=== PATIENT | male | born 1955 | race Caucasian/White ===

== ENCOUNTER → 2017-06-03 | Outpatient (CLI) | payer BC ==
[~2017-06-03] MED LIST: ASPEC81 PO; CITA20TA9 PO; CRG125 PO; ENAL10TA PO; EPP3/2 IM; LPT/40 PO; PANT40TA PO; PRAS1TAB6 PO
[2017-06-03 12:31] LABS: BASO % 0.5 %; BASO ABS # 0.04 K/uL (0-0.2); COMPLETE YES; HEMATOCRIT 44.1 % (42-52); IG% 0.3 %; LYMPH % 34.2 %; LYMPH ABS # 2.99 K/uL (1.2-3.4); MEAN CELL VOLUME 94.8 fL (80-100); MEAN CORPUSCULAR HGB CONC 33.8 g/dl (32-36); MEAN PLATELET VOLUME 10.5 fL (7.4-10.4); MONO % 7.9 %; NEUT % 54.1 %; PLATELET COUNT 328 K/uL (130-400); RED BLOOD COUNT 4.65 M/uL (4.7-6.1); WHITE BLOOD COUNT 8.74 K/uL (4.8-10.8)
[2017-06-03 12:41] LABS: ESTIMATED AVERAGE GLUCOSE 123 mg/dl; HA1C FLAG Normal (Normal)
[2017-06-03 12:42] LABS: ALT/SGPT 36 U/L (12-78); BLOOD UREA NITROGEN 13 mg/dl (7-18); BUN/CREATININE RATIO 11.4 (10-20); CALCIUM 8.7 mg/dl (8.5-10.1); CARBON DIOXIDE 26 mmol/L (21-32); CHLORIDE 107 mmol/L (98-107); CHOLESTEROL 144 mg/dl (0-200); GLUCOSE 94 mg/dl (70-99); POTASSIUM 4.2 mmol/L (3.5-5.1); SODIUM 140 mmol/L (136-145)
[2017-06-03 12:47] LABS: ALB/GLOB RATIO 0.9 (0.9-2); ALKALINE PHOSPHATASE 110 U/L (45-117); AST/SGOT 20 U/L (15-37); CHOLESTEROL/HDL RATIO 3.9; HDL CHOLESTEROL 37 mg/dl; LDL CHOLESTEROL CALCULATED 79 mg/dl; TRIGLYCERIDES 140 mg/dl (0-150); VERY LOW DENSITY LIPOPROT CALC 28 mg/dl
== END | disposition home or self-care (01) ==
LOC: C.LABBFT 10:09
PROVIDERS: ATTEND Physician Assistant Medical
DX: R73.01 Impaired fasting glucose (principal); Z12.5 Encounter for screening for malignant neoplasm of prostate

== ENCOUNTER → 2017-08-27 | Outpatient (CLI) | payer BC ==
[~2017-08-27] MED LIST changes: +ASPCH81X PO; -ASPEC81 PO; +ATOR-26 PO; -CITA20TA9 PO; +HYDR-5688 PO; -LPT/40 PO; +PARO1TAB27 PO; +TAMS0.4C38 PO
--- NOTE | 2017-08-27 15:52 | DIAGNOSTIC IMAGING REPORT ---
KUB CLINICAL HISTORY: Evaluate for right ureteral calculus. COMPARISON STUDY: CT of the abdomen and pelvis August 17, 2017. FINDINGS: The 6 mm distal right ureteral calculus is unchanged in position since CT of August 17, 2017. Multiple bilateral renal calculi are noted, including an 8 mm left renal calculus. No additional ureteral calculi are identified. IMPRESSION: 1. No change in position of a 6 mm distal right ureteral calculus since CT of August 17, 2017. 2. Bilateral nephrolithiasis. Electronically signed by: Jose Nelson M.D. 08/27/2017 3:50 PM Dictated Date/Time: 08/27/2017 3:48 PM
== END | disposition home or self-care (01) ==
LOC: C.RAD1850 15:26
PROVIDERS: ATTEND Nurse Practitioner
DX: N20.1 Calculus of ureter (principal)

== ENCOUNTER → 2017-10-03 | Day surgery (SDC) | payer BC ==
[2017-09-23 15:23] VITALS: Ht 177.8 cm; Wt 100.0 kg
[~2017-10-03] VITALS: Ht 177.8 cm; Wt 100.0 kg
[~2017-10-03] MED LIST changes: +CARV12.52 PO; +ENAL1TAB31 PO; +GUAISYP4 PO; -HYDR-5688 PO; +NTRGSL/4 UT; +PROPOFOL IV EMULSION 10 MG/ML 20 ML VIAL IV ONE; +SODIUM CHLORIDE 0.9% 500ML 500 ML IV ONE
--- NOTE | 2017-10-03 11:11 | Endo History and Physical ---
History & Physical Date of Service: Oct 03, 2017. Chief Complaint: history of polyps Referring Physician: Willow BOOGIE History of Present Illness 62 yo CM who presents for colonoscopy secondary to history of colon polyps. Past Surgical History Hx Cardiac Surgery: Yes (HEART CATH-2 STENTS PLACED) Hx Internal Defibrillator: No Hx Pacemaker: No Hx Abdominal Surgery: No Hx of Implantable Prosthesis: No Hx Post-Op Nausea and Vomiting: No Hx Cancer Surgery: No Hx Thoracic Surgery: No Hx Orthopedic: Yes (RT KNEE ARTHROSCOPY) Hx Urinary Tract Surgery: Yes (LITHOTRIPSY'S, URETEROSCOPY WITH KIDNEY STONE REMOVAL) Family History None Social History Smoking Status: Never Smoker Hx Substance Use: No Hx Alcohol Use: Yes (RARELY) Allergies Coded Allergies: Erythromycin (Verified Allergy, Intermediate, HIVES, 09/23/17) Current Medications Reported Home Medications Medications Dose Route/Sig Max Daily Dose Days Date Category Flomax (Tamsulosin Hcl) 0.4 Mg Cap 0.4 Mg PO QAM 09/23/17 Reported Nitrostat (Nitroglycerin) 0.4 Mg Tab 0.4 Mg UT PRN PRN 09/23/17 Reported Vasotec (Enalapril Maleate) 20 Mg Tab 1 Tab PO QAM 09/23/17 Reported Paxil (Paroxetine HCl) 20 Mg Tab 20 Mg PO QAM 08/17/17 Reported Aspirin Chewable (Aspirin) 81 Mg Chew 81 Mg PO QAM 08/17/17 Reported Lipitor (Atorvastatin Calcium) 80 Mg Tab 80 Mg PO QPM 08/17/17 Reported Carvedilol 12.5 Mg Tab 12.5 Mg PO BID 12/06/14 Rx Vasotec (Enalapril Maleate) 10 Mg Tab 20 Mg PO DAILY 12/05/14 Reported Effient (Prasugrel Hcl) 10 Mg Tab 10 Mg PO QAM 12/05/14 Reported Epipen (Epinephrine) 0.3 Mg/0.3 Ml Inj 0.3 Mg IM UD 07/22/12 Reported Protonix (Pantoprazole Sodium) 40 Mg Tab 40 Mg PO QAM 09/03/11 Reported Vital Signs Weight (Kilograms): 100 Height (Feet): 5 Height (Inches): 10 Date Time Temp Pulse Resp B/P (MAP) Pulse Ox O2 Delivery O2 Flow Rate FiO2 10/03/17 11:02 36.9 77 20 129/75 (93) 95 Room Air Physical Exam General Appearance: WD/WN, no apparent distress Respiratory/Chest: Auscultation: breath sounds normal Cardiovascular: Heart Auscultation: RRR Abdomen: Bowel Sounds: normal Inspection & Palpation: soft, non-distended, no tenderness, guarding & rebound Assessment and Plan Assessment: 62 yo CM who presents for colonoscopy secondary to history of colon polyps. Plan: Proceed with colonoscopy.
--- NOTE | 2017-10-03 11:55 | Discharge Instructions ---
Endoscopy Patient Instructions Date / Procedure(s) Performed Oct 03, 2017. Colonoscopy Allergy Information Coded Allergies: Erythromycin (Verified Allergy, Intermediate, HIVES, 09/23/17) Discharge Date / Findings Oct 03, 2017. Colon polyp Diverticulosis Internal hemorrhoids Medication Instructions Stopped Medication(s): last ASA .,took Effient yesterday at 0600 OK to resume all medications today as prescribed Reported Home Medications Medications Dose Route/Sig Max Daily Dose Days Date Category Flomax (Tamsulosin Hcl) 0.4 Mg Cap 0.4 Mg PO QAM 09/23/17 Reported Nitrostat (Nitroglycerin) 0.4 Mg Tab 0.4 Mg UT PRN PRN 09/23/17 Reported Vasotec (Enalapril Maleate) 20 Mg Tab 1 Tab PO QAM 09/23/17 Reported Paxil (Paroxetine HCl) 20 Mg Tab 20 Mg PO QAM 08/17/17 Reported Aspirin Chewable (Aspirin) 81 Mg Chew 81 Mg PO QAM 08/17/17 Reported Lipitor (Atorvastatin Calcium) 80 Mg Tab 80 Mg PO QPM 08/17/17 Reported Carvedilol 12.5 Mg Tab 12.5 Mg PO BID 12/06/14 Rx Vasotec (Enalapril Maleate) 10 Mg Tab 20 Mg PO DAILY 12/05/14 Reported Effient (Prasugrel Hcl) 10 Mg Tab 10 Mg PO QAM 12/05/14 Reported Epipen (Epinephrine) 0.3 Mg/0.3 Ml Inj 0.3 Mg IM UD 07/22/12 Reported Protonix (Pantoprazole Sodium) 40 Mg Tab 40 Mg PO QAM 09/03/11 Reported Provider Instructions Activity Restrictions - No exercising or heavy lifting for 24 hours. - Do not drink alcohol the day of the procedure. - Do not drive a car or operate machinery until the day after the procedure. - Do not make any important decisions or sign important papers in 24 hours after the procedure. Following Day: - Return to full activity which may include returning to work/school. Diet Start your diet with liquids and light foods (jello, soup, juice, toast). Then eat your usual diet if not nauseated. Treatment For Common After Affects For mild abdominal pain, bloating, or excessive gas: - Rest - Eat lightly - Lie on right side Follow-Up Information Follow-up with Willow BOOGIE as scheduled Anesthesia Information What You Should Know You have had a procedure that required some medicine to reduce anxiety and discomfort. This treatment is called moderate sedation. After receiving the treatment, you may be sleepy, but you will be able to breathe on your own. The effects of the treatment may last for several hours. Follow these instructions along with Activity/Diet recommendations noted above: * Do NOT do anything where dizziness or clumsiness would be dangerous. * Rest quietly at home today, then you can be up and about tomorrow. * Have a responsible person stay with you the rest of today. * You may have had an I.V. today. If so, you may take the dressing off later today. Recommendations Call your doctor if: * Trouble breathing * Continuous vomiting for more than 24 hours * Temperature above 101 degrees * Severe abdominal pain or bloating * Pain not relieved by pain medicine ordered * There is increased drainage or redness from any incision * A large amount of rectal bleeding greater than 2-3 tablespoons. (If you had a polyp/s removed or have hemorrhoids, a small amount of blood - from the rectum is to be expected.) * You have any unanswered questions or concerns. IN THE EVENT OF A SERIOUS EMERGENCY, GO TO THE NEAREST EMERGENCY ROOM Your discharge instructions were prepared by provider Andrew Pedro. Patient Instructions Signature Page Segundo Rodriguez Patient (or Guardian) Signature/Date: I have read and understand the instructions given to me by my caregivers. Caregiver/RN/Doctor Signature/Date: The above-named patient and/or guardian has received patient instructions on this date. + Original Patient Signature Page (only) stays with chart. Please make copy for patient.
--- NOTE | 2017-10-03 12:00 | GI REPORT ---
Procedure Date: 10/03/2017 11:12 AM Procedure: Colonoscopy Indications: High risk colon cancer surveillance: Personal history of colonic polyps Medicines: Monitored Anesthesia Care Complications: No immediate complications. Estimated Blood Loss: Estimated blood loss: none. Procedure: Pre-Anesthesia Assessment: - Prior to the procedure, a History and Physical was performed, and patient medications and allergies were reviewed. The patient's tolerance of previous anesthesia was also reviewed. The risks and benefits of the procedure and the sedation options and risks were discussed with the patient. All questions were answered, and informed consent was obtained. Prior Anticoagulants: The patient last took aspirin 2 days and anticoagulant medication 2 days prior to the procedure. ASA Grade Assessment: III - A patient with severe systemic disease. After reviewing the risks and benefits, the patient was deemed in satisfactory condition to undergo the procedure. After I obtained informed consent, the scope was passed under direct vision. Throughout the procedure, the patient's blood pressure, pulse, and oxygen saturations were monitored continuously. The Scope was introduced through the anus and advanced to the terminal ileum. The colonoscopy was performed without difficulty. The patient tolerated the procedure well. The quality of the bowel preparation was good. The terminal ileum, ileocecal valve, appendiceal orifice, and rectum were photographed. Findings: The perianal and digital rectal examinations were normal. A 3 mm polyp was found in the ascending colon. The polyp was sessile. The polyp was removed with a cold biopsy forceps. Resection and retrieval were complete. Multiple small-mouthed diverticula were found in the sigmoid colon. Non-bleeding internal hemorrhoids were found during retroflexion. The hemorrhoids were small. Impression: - One 3 mm polyp in the ascending colon, removed with a cold biopsy forceps. Resected and retrieved. - Diverticulosis in the sigmoid colon. - Non-bleeding internal hemorrhoids. Recommendation: - Resume previous diet. - Continue present medications. - Repeat colonoscopy for surveillance based on pathology results. - Return to primary care physician as previously scheduled. Andrew Pedro, 10/03/2017 11:59:25 AM This report has been signed electronically. Note Initiated On: 10/03/2017 11:12 AM I attest to the content of the Intraoperative Record and orders documented therein, exceptions below
--- NOTE | 2017-10-03 12:28 | Anesthesiology Progress Note ---
Anesthesia Post Op Note Date & Time Oct 03, 2017 at 12:27 Vital Signs Pain Intensity: 0 Vital Signs Past 12 Hours Date Time Temp Pulse Resp B/P (MAP) Pulse Ox O2 Delivery O2 Flow Rate FiO2 10/03/17 11:59 36.9 72 20 100/66 (77) 93 Room Air 10/03/17 11:02 36.9 77 20 129/75 (93) 95 Room Air Notes Mental Status: alert / awake / arousable, participated in evaluation Pt Amnestic to Procedure: Yes Nausea / Vomiting: adequately controlled Pain: adequately controlled Airway Patency, RR, SpO2: stable & adequate BP & HR: stable & adequate Hydration State: stable & adequate Anesthetic Complications: no major complications apparent
[2017-10-03 12:29] VITALS: BP 127/81; PULSE 77; O2SAT 96
== END | disposition home or self-care (01) ==
LOC: C.GI 10:37
PROVIDERS: ATTEND Internal Medicine
DX: Z12.11 Encounter for screening for malignant neoplasm of colon (principal); D12.2 Benign neoplasm of ascending colon; K64.8 Other hemorrhoids; K57.30 Diverticulosis of large intestine without perforation or abscess without bleeding; K21.9 Gastro-esophageal reflux disease without esophagitis; F41.9 Anxiety disorder, unspecified; I25.2 Old myocardial infarction; E78.5 Hyperlipidemia, unspecified; I25.10 Atherosclerotic heart disease of native coronary artery without angina pectoris; Z86.010 Personal history of colon polyps; Z95.5 Presence of coronary angioplasty implant and graft; Z87.442 Personal history of urinary calculi; Z88.1 Allergy status to other antibiotic agents; Z79.82 Long term (current) use of aspirin

== ENCOUNTER → 2017-10-25 | Outpatient (CLI) | payer BC, OTHER ==
[~2017-10-25] MED LIST changes: -CARV12.52 PO; -GUAISYP4 PO; -PROPOFOL IV EMULSION 10 MG/ML 20 ML VIAL IV ONE; -SODIUM CHLORIDE 0.9% 500ML 500 ML IV ONE
--- NOTE | 2017-10-25 13:21 | DIAGNOSTIC IMAGING REPORT ---
KUB CLINICAL HISTORY: R31.9 Blood in urine hematuria COMPARISON STUDY: 08/27/2017 FINDINGS: Bilateral nephrocalcinosis unchanged in the prior study. A distal right ureteral calculus on the prior study has passed. No new or interval calcifications in the paravertebral or urinary tract line are appreciated. Bowel pattern is nonobstructive. IMPRESSION: Bilateral nephrocalcinosis unchanged from the prior study. The previously described right ureteral calculus has passed. The above report was generated using voice recognition software. It may contain grammatical, syntax or spelling errors. Electronically signed by: Kareem Sauer M.D. 10/25/2017 1:20 PM Dictated Date/Time: 10/25/2017 1:19 PM
== END | disposition home or self-care (01) ==
LOC: C.RAD 12:58
PROVIDERS: ATTEND Urology
DX: R31.9 Hematuria, unspecified (principal); Z87.442 Personal history of urinary calculi

== ENCOUNTER 2017-11-12 14:55 | Inpatient (IN) | payer BC, OTHER ==
[~2017-11-12] VITALS: Ht 177.8 cm; Wt 100.2 kg
[~2017-11-12 14:55] MED LIST changes: -ENAL1TAB31 PO; -EPP3/2 IM; -NTRGSL/4 UT; -PANT40TA PO; -PRAS1TAB6 PO
[2017-11-12] MEDS ORDERED: EPP3/2 IM (15:13)
[2017-11-12] MEDS ORDERED: SODIUM CHLORIDE 0.9% 1000ML 1,000 ML IV STA ×2 (15:17→17:17)
[2017-11-12] MEDS ORDERED: ALBUT/IPRATROP 3MG/0.5MG NEB 3 ML VIAL INH STA (15:17)
[2017-11-12] MEDS ORDERED: ACETAMINOPHEN 500 MG TAB PO STA (15:20)
[2017-11-12] MEDS ORDERED: ENAL1TAB31 PO (15:23)
[2017-11-12] MEDS ORDERED: NTRGSL/4 UT (15:31)
--- NOTE | 2017-11-12 15:36 | EMERGENCY ROOM VISIT NOTE ---
History First contact with patient: 15:06 Chief Complaint: FLU LIKE SX Stated Complaint: PALPITATIONS History of Present Illness The patient is a 62 year old male who presents to the Emergency Room with complaints of flulike symptoms of cough, fever/chills, body aches and headaches for the past 5 days. The patient states yesterday he developed chest pain that he states is only with coughing, states the pain is along the sides of his rib cage and in the middle of his chest, he denies any chest pain at rest or with exertion. He reports positive sick contacts with similar symptoms. He did not have a flu shot. He states the cough is what is bothering him the most. He denies any shortness of breath, syncope, diaphoresis, vomiting, abdominal pain, or back pain. He states he has been having some loose stools associated with his illness, but denies any watery diarrhea, bloody or black stools. He denies any urinary symptoms. He does report a history of hypertension and ID in 2015 resulting in 2 stents. Review of Systems A complete 10 point review of systems was reviewed with the patient with pertinent positives and negatives as per history of present illness. All else were negative. Past Medical/Surgical History Medical Problems: (1) CAD (coronary artery disease) (2) Flu-like symptoms (3) HTN (hypertension) Surgical Problems: (1) H/O cardiac catheterization Social History Smoking Status: Never Smoker Drug Use: none Marital Status: Housing Status: lives with family Occupation Status: employed Current/Historical Medications Scheduled Aspirin (Aspirin Chewable), 81 MG PO QAM Atorvastatin (Lipitor), 80 MG PO QPM Carvedilol (Carvedilol), 12.5 MG PO BID Carvedilol (Coreg), 12.5 MG PO BID Enalapril Maleate (Vasotec), 20 MG PO QAM Pantoprazole (Protonix), 40 MG PO QAM Paroxetine (Paxil), 20 MG PO QAM Prasugrel Hcl (Effient), 10 MG PO QAM Scheduled PRN Epinephrine (Epipen), 0.3 MG IM UD PRN for Allergic Reaction Nitroglycerin (Nitrostat), 0.4 MG UT UD PRN for Chest Pain Allergies Reviewed in chart Physical Exam Vital Signs Date Time Temp Pulse Resp B/P (MAP) Pulse Ox O2 Delivery O2 Flow Rate FiO2 11/12/17 18:00 97 Nasal Cannula 2.0 11/12/17 18:00 37.2 84 20 89 Room Air 11/12/17 17:00 86 18 152/86 93 Room Air 11/12/17 15:26 92 Room Air 11/12/17 15:08 91 11/12/17 15:02 37.7 92 20 170/91 93 Room Air Physical Exam CONSTITUTIONAL: Pleasant and cooperative. No acute distress, but appears uncomfortable. Moderately dehydrated. HEENT: Normocephalic, atraumatic. Pupils equal, round and reactive to light, EOMI. TMs normal. Pharynx normal. Dry mucous membranes. NECK: Supple, full active range of motion without discomfort. No cervical adenopathy. RESPIRATORY: Diminished breath sounds throughout, no wheezing, crackles, rhonchi or stridor heard. No accessory muscle use noted. Equal expansion bilaterally. CARDIOVASCULAR: Regular rate and rhythm with no murmurs, rubs or gallops. Normal peripheral perfusion. No edema. GASTROINTESTINAL: Soft, nontender, nondistended. No palpable masses or HSM. Bowel sounds present in all quadrants. MUSCULOSKELETAL: Full range of motion of all joints without discomfort. INTEGUMENTARY: No rash or other significant dermatologic conditions noted. NEUROLOGIC: Alert and oriented X 4 with normal affect. Cranial nerves II-XII grossly intact. No focal neurologic deficits noted. Normal strength and sensation in all 4 extremities. Normal speech. Medical Decision & Procedures ER Provider Diagnostic Interpretation: CHEST 2 VIEWS ROUTINE HISTORY: Cough. Fever. COMPARISON: Chest 12/05/2014. FINDINGS: There are low lung volumes. The heart is borderline enlarged, unchanged. No pleural effusions. No pneumothorax. No focal lung consolidations to suggest pneumonia. IMPRESSION: No acute process. Laboratory Results 11/12/17 15:28 Red Blood Count 4.67, Mean Corpuscular Volume 94.0, Mean Corpuscular Hemoglobin 31.7, Mean Corpuscular Hemoglobin Concent 33.7, Mean Platelet Volume 10.6, Neutrophils (%) (Auto) 66.6, Lymphocytes (%) (Auto) 20.6, Monocytes (%) (Auto) 11.5, Eosinophils (%) (Auto) 1.0, Basophils (%) (Auto) 0.1, Neutrophils # (Auto ) 6.08, Lymphocytes # (Auto) 1.88, Monocytes # (Auto) 1.05, Eosinophils # (Auto ) 0.09, Basophils # (Auto) 0.01 11/12/17 15:28 Test 11/12/17 15:05 11/12/17 15:07 11/12/17 15:28 11/12/17 17:55 Influenza Type A (RT-PCR) POS for Influ A (NEG) Influenza Type A Antigen Neg for Influ A (NEG) Influenza Type B Antigen Neg for Influ B (NEG) Influenza Type B (RT-PCR) Neg for Influ B (NEG) Bedside Glucose 89 mg/dl (70-99) White Blood Count 9.13 K/uL (4.8-10.8) Red Blood Count 4.67 M/uL (4.7-6.1) Hemoglobin 14.8 g/dL (14.0-18.0) Hematocrit 43.9 % (42-52) Mean Corpuscular Volume 94.0 fL (80-100) Mean Corpuscular Hemoglobin 31.7 pg (25-34) Mean Corpuscular Hemoglobin Concent 33.7 g/dl (32-36) Platelet Count 248 K/uL (130-400) Mean Platelet Volume 10.6 fL (7.4-10.4) Neutrophils (%) (Auto) 66.6 % Lymphocytes (%) (Auto) 20.6 % Monocytes (%) (Auto) 11.5 % Eosinophils (%) (Auto) 1.0 % Basophils (%) (Auto) 0.1 % Neutrophils # (Auto) 6.08 K/uL (1.4-6.5) Lymphocytes # (Auto) 1.88 K/uL (1.2-3.4) Monocytes # (Auto) 1.05 K/uL (0.11-0.59) Eosinophils # (Auto) 0.09 K/uL (0-0.5) Basophils # (Auto) 0.01 K/uL (0-0.2) RDW Standard Deviation 42.0 fL (36.4-46.3) RDW Coefficient of Variation 12.3 % (11.5-14.5) Immature Granulocyte % (Auto) 0.2 % Immature Granulocyte # (Auto) 0.02 K/uL (0.00-0.02) Anion Gap 7.0 mmol/L (3-11) Est Creatinine Clear Calc Drug Dose 70.7 ml/min Estimated GFR () 68.6 Estimated GFR (Non- 59.2 BUN/Creatinine Ratio 10.6 (10-20) Calcium Level 8.9 mg/dl (8.5-10.1) Total Bilirubin 0.6 mg/dl (0.2-1) Aspartate Amino Transf (AST/SGOT) 22 U/L (15-37) Alanine Aminotransferase (ALT/SGPT) 31 U/L (12-78) Alkaline Phosphatase 104 U/L (45-117) Total Protein 7.8 gm/dl (6.4-8.2) Albumin 3.5 gm/dl (3.4-5.0) Globulin 4.3 gm/dl (2.5-4.0) Albumin/Globulin Ratio 0.8 (0.9-2) Urine Color YELLOW Urine Appearance CLEAR (CLEAR) Urine pH 7.5 (4.5-7.5) Urine Specific [place] 1.007 (1.000-1.030) Urine Protein NEG (NEG) Urine Glucose (UA) NEG (NEG) Urine Ketones NEG (NEG) Urine Occult Blood TRACE (NEG) Urine Nitrite NEG (NEG) Urine Bilirubin NEG (NEG) Urine Urobilinogen NEG (NEG) Urine Leukocyte Esterase NEG (NEG) Urine WBC (Auto) 1-5 /hpf (0-5) Urine RBC (Auto) 0-4 /hpf (0-4) Urine Hyaline Casts (Auto) 0 /lpf (0-5) Urine Epithelial Cells (Auto) 5-10 /lpf (0-5) Urine Bacteria (Auto) NEG (NEG) Test 11/12/17 18:07 Troponin I < 0.015 ng/ml (0-0.045) Medications Administered Medications (Trade) Dose Ordered Sig/[place] Route Start Time Stop Time Status Last Admin Dose Admin Albuterol/ Ipratropium (Duoneb) 3 ml NOW STAT INH 11/12/17 15:17 11/12/17 15:20 DC 11/12/17 15:35 3 ML Sodium Chloride 1,000 ml @ 999 mls/hr Q1H1M STAT IV 11/12/17 15:17 11/12/17 16:17 DC 11/12/17 15:36 999 MLS/HR Acetaminophen (Tylenol Tab) 1,000 mg NOW STAT PO 1/31/18 15:20 11/12/17 15:21 DC 11/12/17 15:35 1,000 MG Sodium Chloride 1,000 ml @ 999 mls/hr Q1H1M STAT IV 11/12/17 17:17 11/12/17 18:17 DC 11/12/17 17:33 999 MLS/HR Ketorolac Tromethamine (Toradol Inj) 15 mg NOW STAT IV 11/12/17 17:17 11/12/17 17:19 DC 11/12/17 17:34 15 MG ECG Indication: chest pain, SOB/dyspnea Rate (beats per minute): 88 Rhythm: normal sinus Findings: Q waves (Inferior), no acute ischemic change, no ectopy Change: no significant change (EKG from 12/06/2014, inferior infarct is present ; no acute changes) Medical Decision CC: Patient presenting with complaint of cough, flulike symptoms, chest pains Interpretation of Labs: No Leukocytosis, no anemia, no significant electrolyte abnormalities, normal renal function, normal liver enzymes. Influenza A/B negative. Negative troponin 2. UA negative. Differential Diagnosis: Includes, but not limited to influenza, bronchitis, pneumonia, viral URI, ACS, CHF, COPD, PE, pneumothorax, pleural effusion, dehydration, among others. Medication Reconciliation: I attest that I have personally reviewed the patient' s current medication list. Initial vital signs review: I reviewed the patient's vital signs and interpret them as follows: T: Afebrile; BP: Hypertensive; HR: Within normal limits; RR : Within normal limits; Pulse Ox: Within normal limits and. Blood pressure screening: The patient was found to have an elevated blood pressure and was referred to the inpatient team for further management. Summary: Patient was evaluated at bedside, history and physical exam performed. Patient is alert and oriented, no acute distress but does appear uncomfortable, resting in the stretcher. Lungs are diminished throughout, but no wheezes or rhonchi heard on auscultation. Patient denies any chest pain at this time, states it is only when he coughs. EKG reviewed at bedside, shows normal sinus rhythm old inferior infarct, noted when compared to previous EKG by my interpretation. Orders were placed at bedside for labs, UA, influenza, IV fluids for hydration, Tylenol, chest x-ray to evaluate for pneumonia. Patient discussed with Dr. Romano, who agrees with my assessment and plan. Labs reviewed as above, no significant abnormalities. Notably, influenza is negative, however I feel that the patient most likely does have influenza based on his symptoms. EKG shows normal sinus rhythm with evidence of a previous inferior infarct, which is not new, by my interpretation. Chest x-ray reviewed and is unremarkable. Patient reassessed multiple times throughout ED stay, he continues to feel poorly, complaining of shortness of breath and was noted to drop his sats below 90% multiple times on room air. The patient was therefore placed on oxygen therapy, after which he reports improvement in his shortness of breath. His sats also came up to 97%. Given the patient's oxygen requirement persistent symptoms of shortness of breath, I feel he would benefit from inpatient admission. I spoke on the phone with Dr. Joy, hospitalist, who agrees to evaluate the patient for admission. Patient was updated on all results and plan for admission, he verbalized understanding and was agreeable to this plan. The patient was stable at time of admission. Impression Primary Impression: Influenza-like symptoms Additional Impression: Hypoxemia Departure Information Dispostion Admitted as an inpatient Condition FAIR Referrals Vishal Madden M.D. (PCP) Patient Instructions My [facility] Problem Qualifiers
[2017-11-12 15:44] LABS: BASO % 0.1 %; BASO ABS # 0.01 K/uL (0-0.2); EOS ABS # 0.09 K/uL (0-0.5); HEMATOCRIT 43.9 % (42-52); HEMOGLOBIN 14.8 g/dL (14.0-18.0); IG# 0.02 K/uL (0.00-0.02); LYMPH % 20.6 %; LYMPH ABS # 1.88 K/uL (1.2-3.4); MEAN CORPUSCULAR HEMOGLOBIN 31.7 pg (25-34); MEAN CORPUSCULAR HGB CONC 33.7 g/dl (32-36); MEAN PLATELET VOLUME 10.6 fL (7.4-10.4); MONO % 11.5 %; MONO ABS # 1.05 K/uL (0.11-0.59); NEUT % 66.6 %; NEUT ABS # 6.08 K/uL (1.4-6.5); PLATELET COUNT 248 K/uL (130-400); RED CELL DISTRIBUTION WIDTH CV 12.3 % (11.5-14.5); WHITE BLOOD COUNT 9.13 K/uL (4.8-10.8)
[2017-11-12] MEDS ORDERED: PANT40TA PO (16:03)
[2017-11-12 16:04] LABS: ALBUMIN 3.5 gm/dl (3.4-5.0); ALT/SGPT 31 U/L (12-78); AST/SGOT 22 U/L (15-37); BLOOD UREA NITROGEN 14 mg/dl (7-18); CALCIUM 8.9 mg/dl (8.5-10.1); CARBON DIOXIDE 27 mmol/L (21-32); CREATININE 1.28 mg/dl (0.60-1.40); GLUCOSE 87 mg/dl (70-99); SODIUM 136 mmol/L (136-145)
--- NOTE | 2017-11-12 16:04 | DIAGNOSTIC IMAGING REPORT ---
CHEST 2 VIEWS ROUTINE HISTORY: Cough. Fever. COMPARISON: Chest 12/05/2014. FINDINGS: There are low lung volumes. The heart is borderline enlarged, unchanged. No pleural effusions. No pneumothorax. No focal lung consolidations to suggest pneumonia. IMPRESSION: No acute process. Electronically signed by: Helio Newell M.D. 11/12/2017 4:03 PM Dictated Date/Time: 11/12/2017 4:02 PM
[2017-11-12 16:09] LABS: ALKALINE PHOSPHATASE 104 U/L (45-117); TOTAL PROTEIN 7.8 gm/dl (6.4-8.2)
[2017-11-12 16:09] LABS: INFLUENZA B ANTIGEN Neg for Influ B (NEG)
[2017-11-12] MEDS ORDERED: CARV12.52 PO (16:27)
[2017-11-12] MEDS ORDERED: KETOROLAC TROMETHAMINE 30 MG/ML VIAL IV STA (17:17)
[2017-11-12] MEDS ORDERED: PRAS1TAB6 PO (17:24)
--- NOTE | 2017-11-12 19:13 | History and Physical ---
History & Physical Date & Time of Service: Nov 12, 2017 at 19:07 Chief Complaint: Palpitations Primary Care Physician: Vishal Madden M.D. History of Present Illness Source: patient 62 y/o M c/o flu like sx. Pt states he has felt generally unwell for the last 5 days. He has had fever/chills, cough, headache, diarrhea, and general malaise during this time. He has been tolerating PO without issue and felt like he was eating well. He has mild chest pain when he coughs, but no other chest pain. He was not SOB, but noted to become hypoxic on RA when ED staff attempted to walk him. He is feeling improved s/p IVF and duonebs. Pt denies abd pain, n/v, LE pain or swelling. Past Medical/Surgical History Medical Problems: (1) CAD (coronary artery disease) Status: Chronic (2) HTN (hypertension) Status: Chronic Surgical Problems: (1) H/O cardiac catheterization Status: Resolved CAD s/p [place] with stents in 2014 GERD Depression Family History Father with hx of severe CAD requiring multiple interventions and bypasses Social History Smoking Status: Never Smoker Alcohol Use: none Drug Use: none Marital Status: Occupational Status: employed Immunizations History of Influenza Vaccine: No History of Tetanus Vaccine?: Yes Tetanus Immunization Date: Apr 22, 2011 History of Pneumococcal: No History of Hepatitis B Vaccine: No Multi-Drug Resistant Organisms History of MDRO: No Allergies Coded Allergies: Erythromycin (Verified Allergy, Intermediate, HIVES, 09/23/17) Home Medications Scheduled Aspirin (Aspirin Chewable), 81 MG PO QAM Atorvastatin (Lipitor), 80 MG PO QPM Carvedilol (Carvedilol), 12.5 MG PO BID Carvedilol (Coreg), 12.5 MG PO BID Enalapril Maleate (Vasotec), 20 MG PO QAM Pantoprazole (Protonix), 40 MG PO QAM Paroxetine (Paxil), 20 MG PO QAM Prasugrel Hcl (Effient), 10 MG PO QAM Scheduled PRN Epinephrine (Epipen), 0.3 MG IM UD PRN for Allergic Reaction Nitroglycerin (Nitrostat), 0.4 MG UT UD PRN for Chest Pain Review of Systems Pertinent positives and negatives reviewed in HPI--all others negative Physical Exam Vital Signs Date Time Temp Pulse Resp B/P (MAP) Pulse Ox O2 Delivery O2 Flow Rate FiO2 11/12/17 18:00 97 Nasal Cannula 2.0 11/12/17 18:00 37.2 84 20 89 Room Air 11/12/17 17:00 86 18 152/86 93 Room Air 11/12/17 15:26 92 Room Air 11/12/17 15:08 91 11/12/17 15:02 37.7 92 20 170/91 93 Room Air General Appearance: WD/WN, + mild distress (intense coughing spells) Head: normocephalic, atraumatic Eyes: normal inspection, sclerae normal Respiratory/Chest: no respiratory distress, + decreased breath sounds (tight but no wheezing noted) Cardiovascular: regular rate, rhythm, no edema, normal peripheral pulses Abdomen/GI: non tender, soft Extremities/Musculoskelatal: no calf tenderness, no pedal edema Neurologic/Psych: alert, normal mood/affect, oriented x 3 Skin: normal color, warm/dry Diagnostics Laboratory Results Results Past 24 Hours Test 11/12/17 15:05 11/12/17 15:07 11/12/17 15:28 11/12/17 17:55 Range/Units Influenza Type A Antigen Neg for Influ A NEG Influenza Type B Antigen Neg for Influ B NEG Bedside Glucose 89 70-99 mg/dl White Blood Count 9.13 4.8-10.8 K/uL Red Blood Count 4.67 4.7-6.1 M/uL Hemoglobin 14.8 14.0-18.0 g/dL Hematocrit 43.9 42-52 % Mean Corpuscular Volume 94.0 80-100 fL Mean Corpuscular Hemoglobin 31.7 25-34 pg Mean Corpuscular Hemoglobin Concent 33.7 32-36 g/dl Platelet Count 248 130-400 K/uL Mean Platelet Volume 10.6 7.4-10.4 fL Neutrophils (%) (Auto) 66.6 % Lymphocytes (%) (Auto) 20.6 % Monocytes (%) (Auto) 11.5 % Eosinophils (%) (Auto) 1.0 % Basophils (%) (Auto) 0.1 % Neutrophils # (Auto) 6.08 1.4-6.5 K/uL Lymphocytes # (Auto) 1.88 1.2-3.4 K/uL Monocytes # (Auto) 1.05 0.11-0.59 K/uL Eosinophils # (Auto) 0.09 0-0.5 K/uL Basophils # (Auto) 0.01 0-0.2 K/uL RDW Standard Deviation 42.0 36.4-46.3 fL RDW Coefficient of Variation 12.3 11.5-14.5 % Immature Granulocyte % (Auto) 0.2 % Immature Granulocyte # (Auto) 0.02 0.00-0.02 K/uL Sodium Level 136 136-145 mmol/L Potassium Level 4.0 3.5-5.1 mmol/L Chloride Level 102 98-107 mmol/L Carbon Dioxide Level 27 21-32 mmol/L Anion Gap 7.0 3-11 mmol/L Blood Urea Nitrogen 14 7-18 mg/dl Creatinine 1.28 0.60-1.40 mg/dl Est Creatinine Clear Calc Drug Dose 70.7 ml/min Estimated GFR () 68.6 Estimated GFR (Non- 59.2 BUN/Creatinine Ratio 10.6 10-20 Random Glucose 87 70-99 mg/dl Calcium Level 8.9 8.5-10.1 mg/dl Total Bilirubin 0.6 0.2-1 mg/dl Aspartate Amino Transf (AST/SGOT) 22 15-37 U/L Alanine Aminotransferase (ALT/SGPT) 31 12-78 U/L Alkaline Phosphatase 104 45-117 U/L Troponin I < 0.015 0-0.045 ng/ml Total Protein 7.8 6.4-8.2 gm/dl Albumin 3.5 3.4-5.0 gm/dl Globulin 4.3 2.5-4.0 gm/dl Albumin/Globulin Ratio 0.8 0.9-2 Urine Color YELLOW Urine Appearance CLEAR CLEAR Urine pH 7.5 4.5-7.5 Urine Specific [place] 1.007 1.000-1.030 Urine Protein NEG NEG Urine Glucose (UA) NEG NEG Urine Ketones NEG NEG Urine Occult Blood TRACE NEG Urine Nitrite NEG NEG Urine Bilirubin NEG NEG Urine Urobilinogen NEG NEG Urine Leukocyte Esterase NEG NEG Urine WBC (Auto) 1-5 0-5 /hpf Urine RBC (Auto) 0-4 0-4 /hpf Urine Hyaline Casts (Auto) 0 0-5 /lpf Urine Epithelial Cells (Auto) 5-10 0-5 /lpf Urine Bacteria (Auto) NEG NEG Test 11/12/17 18:07 Range/Units Troponin I < 0.015 0-0.045 ng/ml Diagnostic Radiology CXR neg for acute Impression Assessment and Plan 62 y/o M who was admitted on 11/12 for flu like sx and hypoxia Flu like sx: ED flu swab neg, but hx is c/w flu vs other viral based URI PCR pending Pt is outside the window of tamiflu efficacy, will hold on this CXR and clinical exam neg for PNA Hypoxia: in the setting of likely flu vs URI Monitor on O2 with nebs and mucomyst 89% on room air with ambulation Chest pain: associated with cough Hx of CAD s/p [place] Trops neg x2 Dehydration: IVF and monitor HTN/CAD: continue home meds GERD: continue home meds Depression: continue home meds Other: Full code AHA diet + IVF Ambulation for DVT proph Level of Care Med/Surg Resuscitation Status FULL RESUSCITATION VTE Prophylaxis VTE Risk Assessment Done? Y/N: Yes Risk Level: Low
[2017-11-12] MEDS ORDERED: MAGNESIUM HYDROXIDE SUSP 30 ML UDC PO PRN (19:15)
[2017-11-12] MEDS ORDERED: ONDANSETRON INJ 2 MG/ML 2 ML VIAL IV PRN (19:15)
[2017-11-12] MEDS ORDERED: ALBUT/IPRATROP 3MG/0.5MG NEB 3 ML VIAL INH PRN (19:30)
[2017-11-12 20:10] VITALS: BP 167/93; PULSE 81; TEMP 36.5; O2SAT 97; Ht 177.8 cm; Wt 100.2 kg
[2017-11-12] MEDS: SODIUM CHLORIDE 0.9% 1000ML 1,000 ML IV SCH (20:37)
[2017-11-12] MEDS: ALBUT/IPRATROP 3MG/0.5MG NEB 3 ML VIAL INH SCH (21:00)
[2017-11-12] MEDS: ACETYLCYSTEINE 20% INHAL SOLN ***DISPENSED BY RESP. INH SCH (21:07)
[2017-11-12 21:08] VITALS: PULSE 80; O2SAT 98
[2017-11-12 21:16] LABS: INFLUENZA B PCR Neg for Influ B (NEG)
[2017-11-12 21:17] LABS: INFLUENZA A PCR POS for Influ A (NEG)
[2017-11-12 23:41] VITALS: BP 133/78; PULSE 71; TEMP 36.9; O2SAT 97
[2017-11-13] VITALS (8 sets, daily range): BP systolic 150–165; BP diastolic 65–98; PULSE 64–88; TEMP 36.5–37.2; O2SAT 93–97
[2017-11-13] MEDS: ACETAMINOPHEN 325 MG TAB PO PRN ×2 (05:24→15:27)
[2017-11-13] MEDS: ACETYLCYSTEINE 20% INHAL SOLN ***DISPENSED BY RESP. INH SCH ×2 (07:15→20:03)
[2017-11-13] MEDS: ALBUT/IPRATROP 3MG/0.5MG NEB 3 ML VIAL INH SCH ×4 (07:15→20:03)
[2017-11-13] MEDS: SODIUM CHLORIDE 0.9% 1000ML 1,000 ML IV SCH ×2 (07:26→20:18)
[2017-11-13] MEDS ORDERED: CARVEDILOL 12.5 MG TAB PO SCH (09:00)
[2017-11-13] MEDS ORDERED: NITROGLYCERIN 0.4 MG SL PER TAB CHARGE UT PRN (09:00)
[2017-11-13] MEDS ORDERED: EPINEPHRINE ADULT AUTO-INJECT 0.3 MG SYR IM PRN (09:00)
[2017-11-13] MEDS ORDERED: GUAIFENESIN 600 MG TABCR PO ONE (09:55)
[2017-11-13] MEDS ORDERED: GUAIFENESIN/CODEINE 100MG/10MG 5ML UDC PO PRN (10:00)
[2017-11-13] MEDS: ENALAPRIL MALEATE 10 MG TAB PO SCH (10:36)
[2017-11-13] MEDS: PRASugrel TAB 10 MG TAB PO SCH (10:36)
[2017-11-13] MEDS: PAROXETINE 20 MG TAB PO SCH (10:36)
[2017-11-13] MEDS: ASPIRIN 81 MG ECTAB PO SCH (10:37)
[2017-11-13] MEDS: CARVEDILOL 12.5 MG TAB PO SCH ×2 (10:37→20:22)
[2017-11-13] MEDS: PANTOprazole SOD 40 MG TAB PO SCH (10:37)
--- NOTE | 2017-11-13 10:42 | DIAGNOSTIC IMAGING REPORT ---
CHEST ONE VIEW PORTABLE CLINICAL HISTORY: Shortness of breath COMPARISON STUDY: 11/12/2017 FINDINGS: The heart is mildly enlarged. There is no focal pulmonary consolidation. There is no failure. There are no pleural effusions.[ IMPRESSION: No active disease in the chest. Electronically signed by: Jacob Bonilla M.D. 11/13/2017 10:41 AM Dictated Date/Time: 11/13/2017 10:41 AM
--- NOTE | 2017-11-13 14:38 | Hospitalist Progress Note ---
Hospitalist Progress Note Date of Service Nov 13, 2017. (Eri Disla PA-C) Subjective Pt evaluation today including: conversation w/ patient, physical exam, chart review, lab review, review of studies, review of inpatient medication list Patient seen and evaluated. No acute events overnight. Patient reports he feels just slightly better however continues to feel extremely weak. Reporting that he is tolerating a diet which this is the first adequate meal he has had. Currently weaned off O2 but hasn't been up and moving much. Continues to have a dry non-productive cough. Also reporting intermittent chills Additional Comments: ROS: General/Constitutional: + chills, + fatigue, + generalized weakness ENT: + sore throat; Denies nasal drainage, hearing loss, trouble swallowing Cardiovascular: Denies chest pain, palpitations, edema Respiratory: + non-productive cough; Denies sputum, SOB, wheezing, orthopnea GI: Denies nausea, vomiting, abdominal pain, constipation, diarrhea, melena/ hematochezia : Denies dysuria Musculoskeletal: + generalized aches Neurologic: Denies dizziness/lightheadedness, numbness/tingling Hematologic/Lymphatic: Denies bleeding/clotting abnormalities Skin: Denies rash (Eri Disla PA-C) Medications Current Inpatient Medications Medications (Trade) Dose Ordered Sig/[place] Route Start Time Stop Time Status Last Admin Dose Admin Acetaminophen (Tylenol Tab) 650 mg Q4H PRN PO 11/12/17 19:15 12/12/17 19:14 11/13/17 05:24 650 MG Magnesium Hydroxide (Milk Of Magnesia Susp) 30 ml Q6H PRN PO 11/12/17 19:15 12/12/17 19:14 Ondansetron HCl (Zofran Inj) 4 mg Q6H PRN IV 11/12/17 19:15 12/12/17 19:14 Sodium Chloride 1,000 ml @ 80 mls/hr [id number] IV 11/12/17 19:15 12/12/17 19:14 11/13/17 07:26 80 MLS/HR Albuterol/ Ipratropium (Duoneb) 3 ml QIDR INH 11/12/17 20:00 12/12/17 19:59 11/13/17 11:04 3 ML Acetylcysteine (Mucomyst 20% Inh Soln) 5 ml BID INH 11/12/17 21:00 12/12/17 20:59 11/13/17 07:15 5 ML Albuterol/ Ipratropium (Duoneb) 3 ml Q2H PRN INH 11/12/17 19:30 12/12/17 19:29 Aspirin (Ecotrin Tab) 81 mg QAM PO 11/13/17 09:00 12/13/17 08:59 11/13/17 10:37 81 MG Atorvastatin Calcium (Lipitor Tab) 80 mg QPM PO 11/13/17 21:00 12/13/17 20:59 Carvedilol (Coreg Tab) 12.5 mg BID PO 11/13/17 09:00 12/13/17 08:59 11/13/17 10:37 12.5 MG Epinephrine (Epipen) 0.3 mg UD PRN IM 11/13/17 09:00 12/13/17 08:59 Nitroglycerin (Nitrostat Tab) 0.4 mg UD PRN UT 11/13/17 09:00 12/13/17 08:59 Pantoprazole Sodium (Protonix Tab) 40 mg QAM PO 11/13/17 09:00 12/13/17 08:59 11/13/17 10:37 40 MG Paroxetine HCl (pAXil TAB) 20 mg QAM PO 11/13/17 09:00 12/13/17 08:59 11/13/17 10:36 20 MG Prasugrel (effiENT TAB) 10 mg QAM PO 11/13/17 09:00 12/13/17 08:59 11/13/17 10:36 10 MG Enalapril Maleate (Vasotec Tab) 20 mg QAM PO 11/13/17 09:00 12/13/17 08:59 11/13/17 10:36 20 MG Guaifenesin (Mucinex Contr Rel Tab) 1,200 mg Q12 PO 11/13/17 21:00 12/13/17 20:59 Codeine Phosphate/ Guaifenesin (Robitussin-AC Sugar Free Syrup) 5 ml Q6H PRN PO 11/13/17 10:00 12/13/17 09:59 11/13/17 12:53 5 ML (Eri Disla, RYLEE) Objective Vital Signs Date Time Temp Pulse Resp B/P (MAP) Pulse Ox O2 Delivery O2 Flow Rate FiO2 11/13/17 12:55 84 158/87 (110) 93 Room Air 11/13/17 11:06 85 18 93 Room Air 11/13/17 08:00 Room Air 11/13/17 07:18 36.5 75 20 163/98 (119) 95 2.0 11/13/17 07:15 64 18 97 Nasal Cannula 2.0 11/13/17 00:00 Nasal Cannula 2.0 11/12/17 23:41 36.9 71 17 133/78 (96) 97 Nasal Cannula 2.0 11/12/17 21:08 80 18 98 Nasal Cannula 2.0 11/12/17 20:10 36.5 81 20 167/93 97 Nasal Cannula 2.0 11/12/17 19:41 80 18 140/82 98 Nasal Cannula 2.0 11/12/17 19:28 77 11/12/17 18:00 97 Nasal Cannula 2.0 11/12/17 18:00 37.2 84 20 89 Room Air 11/12/17 17:00 86 18 152/86 93 Room Air 11/12/17 15:26 92 Room Air 11/12/17 15:08 91 11/12/17 15:02 37.7 92 20 170/91 93 Room Air (Eir Disla PA-C) Physical Exam Notes: General Appearance: WDWN in NAD who is A&O x 3 HEENT: Head is normocephalic/atraumatic; Hearing grossly intact; Mucous membranes moist; Pharynx negative for exudate but mildly erythematous Neck: Supple; Trachea midline; Neg JVD; + R anterior cervical chain lymphadenopathy Heart: RRR with no M/G/R Lungs: CTA in all lung botello bilaterally; Respirations unlabored; Neg accessory muscle use Abdomen: Soft, non-tender, non-distended; Positive BS x 4 quadrants Extremities: Neg cyanosis or edema Neurological: Speech clear; Neg focal neurologic deficits Psychiatric: Appropriate mood/affect Skin: Normal Color; Warm/Dry; Neg rashes, ecchymosis, lacerations/ulcerations (Eri Disla PA-C) Laboratory Results Last 24 Hours Test 11/12/17 15:05 11/12/17 15:07 11/12/17 15:28 11/12/17 17:55 Influenza Type A (RT-PCR) POS for Influ A Influenza Type A Antigen Neg for Influ A Influenza Type B Antigen Neg for Influ B Influenza Type B (RT-PCR) Neg for Influ B Bedside Glucose 89 mg/dl White Blood Count 9.13 K/uL Red Blood Count 4.67 M/uL Hemoglobin 14.8 g/dL Hematocrit 43.9 % Mean Corpuscular Volume 94.0 fL Mean Corpuscular Hemoglobin 31.7 pg Mean Corpuscular Hemoglobin Concent 33.7 g/dl Platelet Count 248 K/uL Mean Platelet Volume 10.6 fL Neutrophils (%) (Auto) 66.6 % Lymphocytes (%) (Auto) 20.6 % Monocytes (%) (Auto) 11.5 % Eosinophils (%) (Auto) 1.0 % Basophils (%) (Auto) 0.1 % Neutrophils # (Auto) 6.08 K/uL Lymphocytes # (Auto) 1.88 K/uL Monocytes # (Auto) 1.05 K/uL Eosinophils # (Auto) 0.09 K/uL Basophils # (Auto) 0.01 K/uL RDW Standard Deviation 42.0 fL RDW Coefficient of Variation 12.3 % Immature Granulocyte % (Auto) 0.2 % Immature Granulocyte # (Auto) 0.02 K/uL Sodium Level 136 mmol/L Potassium Level 4.0 mmol/L Chloride Level 102 mmol/L Carbon Dioxide Level 27 mmol/L Anion Gap 7.0 mmol/L Blood Urea Nitrogen 14 mg/dl Creatinine 1.28 mg/dl Est Creatinine Clear Calc Drug Dose 70.7 ml/min Estimated GFR () 68.6 Estimated GFR (Non- 59.2 BUN/Creatinine Ratio 10.6 Random Glucose 87 mg/dl Calcium Level 8.9 mg/dl Total Bilirubin 0.6 mg/dl Aspartate Amino Transf (AST/SGOT) 22 U/L Alanine Aminotransferase (ALT/SGPT) 31 U/L Alkaline Phosphatase 104 U/L Troponin I < 0.015 ng/ml Total Protein 7.8 gm/dl Albumin 3.5 gm/dl Globulin 4.3 gm/dl Albumin/Globulin Ratio 0.8 Urine Color YELLOW Urine Appearance CLEAR Urine pH 7.5 Urine Specific [place] 1.007 Urine Protein NEG Urine Glucose (UA) NEG Urine Ketones NEG Urine Occult Blood TRACE Urine Nitrite NEG Urine Bilirubin NEG Urine Urobilinogen NEG Urine Leukocyte Esterase NEG Urine WBC (Auto) 1-5 /hpf Urine RBC (Auto) 0-4 /hpf Urine Hyaline Casts (Auto) 0 /lpf Urine Epithelial Cells (Auto) 5-10 /lpf Urine Bacteria (Auto) NEG Test 11/12/17 18:07 Troponin I < 0.015 ng/ml (Eri Disla, ALEJANDRAC) Assessment and Plan 62 y/o M who was admitted on 11/12 for flu like sx and hypoxia Hypoxia with Ambulation 2/2 Influenza A: STABLE - Patient is unfortunately outside of the window for Tamiflu and therefore will use supportive measures - F/U CXR continues to not show any signs of consolidation - Mucomyst BID and Duonebs; Mucinex BID and Robitussion/Codeine Dehydration: IMPROVING - NSS at 80 mL/hr CAD S/P [place] and HTN: STABLE - Presented with CP likely musculoskeletal - trops negative - ASA 81 mg daily and Effient 10 mg daily; Lipitor 80 mg daily; Coreg 12.5 mg BID; Enalapril 20 mg daily Disposition: - D/C home hopefully next day or so Continued [facility] stay due to: multiple IV medications needed Discharge planning: home (Eri Disla, RYLEE) Reviewed: Pt Seen/Exam by Me (Karuna Navarro DO) History Pt states he feels no better than yesterday. He is tolerating PO. Has been off of O2 this afternoon. Still with cough that is nonproductive. No chest pain or SOB. Agree with HPI/ROS as noted. (Karuna Navarro, ) All Other Systems: Reviewed and Negative (Karuna Navarro, ) General Appearance: WD/WN, no apparent distress Eye Exam: bilateral eye normal inspection, bilateral eye other (normal sclera) Respiratory: normal breath sounds (air is moving much better than yesterday), no respiratory distress Cardiovascular: normal peripheral pulses, regular rate, rhythm Gastrointestinal: non tender, soft Extremities: non-tender, no pedal edema Neurologic/Psychiatric: alert, normal mood/affect, oriented x 3 Skin Characteristics: normal color, warm/dry (Navarro, Karuna A., DO) Assessment/Plan 62 y/o M who was admitted on 11/12 for flu like sx and hypoxia Agree with plan as outlined above PCR + for flu A Outside of tx window Ongoing IVF Nebs with mucomyst No longer requiring O2 Chest pain: associated with cough Hx of CAD s/p [place] Trops neg x2 (Karuna Navarro, DO)
[2017-11-13] MEDS: GUAIFENESIN 600 MG TABCR PO SCH (20:23)
[2017-11-13] MEDS ORDERED: NURSING DECISION MEDICATION ORDER PRN (20:30)
[2017-11-13] MEDS ORDERED: COUGH DROP (SUGAR FREE) LOZ 24 LOZ/1 BOX LOZ PRN (20:45)
[2017-11-13] MEDS ORDERED: ATORVASTATIN 40 MG TAB PO SCH (21:00)
[2017-11-14] MEDS: ACETYLCYSTEINE 20% INHAL SOLN ***DISPENSED BY RESP. INH SCH (07:12)
[2017-11-14] MEDS: ALBUT/IPRATROP 3MG/0.5MG NEB 3 ML VIAL INH SCH ×2 (07:12→11:16)
[2017-11-14 07:15] VITALS: PULSE 87; O2SAT 96
[2017-11-14 07:17] LABS: HEMATOCRIT 42.1 % (42-52); MEAN CELL VOLUME 94.8 fL (80-100); MEAN CORPUSCULAR HEMOGLOBIN 31.5 pg (25-34); MEAN CORPUSCULAR HGB CONC 33.3 g/dl (32-36); MEAN PLATELET VOLUME 10.6 fL (7.4-10.4); PLATELET COUNT 227 K/uL (130-400); RED CELL DISTRIBUTION WIDTH CV 12.4 % (11.5-14.5); RED CELL DISTRIBUTION WIDTH SD 42.7 fL (36.4-46.3)
[2017-11-14 07:30] VITALS: BP 166/92; PULSE 81; TEMP 36.8; O2SAT 95
[2017-11-14 07:46] LABS: CALCIUM 8.8 mg/dl (8.5-10.1); CREATININE 1.28 mg/dl (0.60-1.40); POTASSIUM 4.2 mmol/L (3.5-5.1)
[2017-11-14] MEDS: CARVEDILOL 12.5 MG TAB PO SCH (07:54)
[2017-11-14] MEDS: PAROXETINE 20 MG TAB PO SCH (07:54)
[2017-11-14] MEDS: GUAIFENESIN 600 MG TABCR PO SCH (07:54)
[2017-11-14] MEDS: PRASugrel TAB 10 MG TAB PO SCH (07:54)
[2017-11-14] MEDS: PANTOprazole SOD 40 MG TAB PO SCH (07:55)
[2017-11-14] MEDS: ENALAPRIL MALEATE 10 MG TAB PO SCH (07:55)
[2017-11-14] MEDS: ASPIRIN 81 MG ECTAB PO SCH (07:55)
[2017-11-14] MEDS: SODIUM CHLORIDE 0.9% 1000ML 1,000 ML IV SCH (07:55)
[2017-11-14 11:17] VITALS: PULSE 86; O2SAT 95
[2017-11-14] MEDS ORDERED: GUAISYP4 PO ×2 (11:23→11:39)
--- NOTE | 2017-11-14 11:27 | Discharge Instructions ---
Discharge Instructions Date of Service Nov 14, 2017. Admission Reason for Admission: Flu Like Symptoms Discharge Discharge Diagnosis / Problem: Influenza A Discharge Goals Goal(s): Decrease discomfort, Improve function, Increase independence Activity Recommendations Activity Limitations: resume your previous activity . Instructions / Follow-Up Instructions / Follow-Up Influenza: - Recommend to continue to stay hydrated and rest for the next few days. - You may use tylenol and ibuprofen for body aches - Recommend that family members just maintain good hygiene and can also call their family doctors as they may want prophylactic Tamiflu - Recommend those who have not to get a flu vaccine. Current Hospital Diet Patient's current hospital diet: AHA Diet (Heart Healthy) Discharge Diet Recommended Diet: AHA Diet (Heart Healthy) Pending Studies Studies pending at discharge: no Medical Emergencies . Who to Call and When: Medical Emergencies: If at any time you feel your situation is an emergency, please call 911 immediately. . Non-Emergent Contact Non-Emergency issues call your: Primary Care Provider Call Non-Emergent contact if: you have a fever, your pain is concerning you, you have any medication questions . . "Provider Documentation" section prepared by Eri Disla. . VTE Core Measure Inpt VTE Proph given/why not?: SCD's
[2017-11-14 11:57] VITALS: BP 166/92; PULSE 86; TEMP 36.8; O2SAT 95
--- NOTE | 2017-11-14 17:13 | Discharge Summary ---
Discharge Summary Date of Service Nov 14, 2017. Discharge Summary Admission Date: Nov 12, 2017 at 19:07 Discharge Date: Nov 14, 2017 Discharge Disposition: Home Principal Diagnosis: Influenza A Problems/Secondary Diagnoses: 1. CAD S/P [place] 2. GERD 3. Depression Immunizations: Have You Had Influenza Vaccine: No History of Tetanus Vaccine?: Yes Tetanus Immunization Date: Apr 22, 2011 History of Pneumococcal: No History of Hepatitis B Vaccine: No Procedures: CHEST ONE VIEW PORTABLE FINDINGS: The heart is mildly enlarged. There is no focal pulmonary consolidation. There is no failure. There are no pleural effusions.[ IMPRESSION: No active disease in the chest. Medication Reconciliation New Medications: Guaifenesin/Codeine (Robitussin-Ac Syrup) Syrp 5 ML PO Q6H PRN for Cough for 7 Days, #1 BTL Continued Medications: Aspirin (Aspirin Chewable) 81 Mg Chew 81 MG PO QAM Atorvastatin (Lipitor) 80 Mg Tab 80 MG PO QPM, TAB Carvedilol (Coreg) 12.5 Mg Tab 12.5 MG PO BID, TAB Enalapril Maleate (Vasotec) 20 Mg Tab 20 MG PO QAM, TAB Epinephrine (Epipen) 0.3 Mg/0.3 Ml Inj 0.3 MG IM UD PRN for Allergic Reaction, INJ Nitroglycerin (Nitrostat) 0.4 Mg Tab 0.4 MG UT UD PRN for Chest Pain, BTL Pantoprazole (Protonix) 40 Mg Tab 40 MG PO QAM Paroxetine (Paxil) 20 Mg Tab 20 MG PO QAM, TAB Prasugrel Hcl (Effient) 10 Mg Tab 10 MG PO QAM, TAB Discharge Exam ROS: General/Constitutional: + generalized weakness, + fatigue; Denies fever/chills ENT: + sore throat; Denies nasal drainage, hearing loss, trouble swallowing Cardiovascular: Denies chest pain, palpitations, edema Respiratory: + non-productive cough; Denies sputum, SOB, wheezing, orthopnea GI: Denies nausea, vomiting, abdominal pain, constipation, diarrhea, melena/ hematochezia : Denies dysuria Musculoskeletal: Denies joint/muscle aches, swelling Neurologic: Denies dizziness/lightheadedness, numbness/tingling Hematologic/Lymphatic: Denies bleeding/clotting abnormalities Skin: Denies rash PHYSICAL EXAM: General Appearance: WDWN in NAD who is A&O x 3 HEENT: Head is normocephalic/atraumatic; EOMI; PERRLA; Hearing grossly intact; Mucous membranes moist; Pharynx negative for exudate/lesions but mildly erythematous Neck: + R anterior cervical chain lymphadenopathy; Trachea midline; Neg JVD Heart: RRR with no M/G/R Lungs: CTA in all lung botello bilaterally; Respirations unlabored; Neg accessory muscle use Abdomen: Soft, non-tender, non-distended; Positive BS x 4 quadrants Extremities: Neg edema Neurological: Speech clear Psychiatric: Appropriate mood/affect Skin: Normal Color; Warm/Dry Hospital Course ADMISSION: 62 y/o M c/o flu like sx. Pt states he has felt generally unwell for the last 5 days. He has had fever/chills, cough, headache, diarrhea, and general malaise during this time. He has been tolerating PO without issue and felt like he was eating well. He has mild chest pain when he coughs, but no other chest pain. He was not SOB, but noted to become hypoxic on RA when ED staff attempted to walk him. He is feeling improved s/p IVF and duonebs. Pt denies abd pain, n/v, LE pain or swelling. HOSPITAL COURSE: Mr. Rodriguez was admitted for ambulatory hypoxia 2/2 Influenza A. Patient was outside of the window for Tamiflu and this was deferred. He was treated with Mucomyst and Duonebs. He was hydrated with IVFs. He continues to feel generalized weakness and fatigue but is ambulating hallways without issues. He is afebrile and oxygenating well on room air. His home medications were resumed as previously prescribed and is suitable for D/C home. Total Time Spent: Greater than 30 minutes This includes examination of the patient, discharge planning, medication reconciliation, and communication with other providers. Discharge Instructions Please refer to the electronic Patient Visit Report (Discharge Instructions) for additional information. Additional Copies To Vishal Madden M.D. Reviewed: Pt Seen/Exam by Me History Pt is feeling much improved today. He feels his cough has finally started to be productive and this is helping him to feel better. No issues off of O2. Tolerating PO without issue. Denies chest pain, SOB. Agree with HPI/ROS as noted by PA. Comments General Appearance: WD/WN, no apparent distress Eye Exam: bilateral eye normal inspection, bilateral eye other (normal sclera) Respiratory: normal breath sounds, no respiratory distress Cardiovascular: normal peripheral pulses, regular rate, rhythm Gastrointestinal: non tender, soft Extremities: non-tender, no pedal edema Neurologic/Psychiatric: alert, normal mood/affect, oriented x 3 Skin Characteristics: normal color, warm/dry Assessment/Plan 62 y/o M who was admitted on 11/12 for flu and hypoxia Agree with plan as outlined above PCR + for flu A Outside of tx window on presentation Improved on IVF and nebs with mucomyst No longer requiring O2 Chest pain: associated with cough Hx of CAD s/p [place] Trops neg x2
== END 2017-11-14 13:43 | disposition home or self-care (01) | DRG 195 ==
LOC: EDBD 14:55 → C.EDC 14:56 → C.MS2W 19:07 → ENRESERV 19:31
PROVIDERS: ADMIT Family Medicine; ATTEND Family Medicine
DX: J10.1 Influenza due to other identified influenza virus with other respiratory manifestations (principal); R09.02 Hypoxemia; E86.0 Dehydration; I11.9 Hypertensive heart disease without heart failure; I25.2 Old myocardial infarction; I25.10 Atherosclerotic heart disease of native coronary artery without angina pectoris; K21.9 Gastro-esophageal reflux disease without esophagitis; F32.9 Major depressive disorder, single episode, unspecified; Z79.899 Other long term (current) drug therapy; Z95.5 Presence of coronary angioplasty implant and graft; Z79.82 Long term (current) use of aspirin